=== PATIENT | female | born 1930 | race Hispanic/Latino ===

== ENCOUNTER 2020-07-02 10:23 | Emergency (ER) | payer OTHER, MEDICARE | END 2020-07-02 14:41 | disposition home or self-care (01) | LOC: EDH 10:23 | DX: S42.251A Displaced fracture of greater tuberosity of right humerus, initial encounter for closed fracture (principal); W06.XXXA Fall from bed, initial encounter; Y93.89 Activity, other specified; Y92.89 Other specified places as the place of occurrence of the external cause; Y99.8 Other external cause status | CPT/HCPCS: 73030 ==